=== PATIENT | female | born 1940 | race Caucasian/White ===

== ENCOUNTER → 2018-10-25 10:07 | Outpatient (CLI) | payer MEDICARE, OTHER, SELFPAY ==
--- NOTE | 2018-10-25 | DI.MG.S_ITS ---
BILATERAL DIGITAL SCREENING MAMMOGRAM 3D/2D WITH CAD: 10/25/2018 CLINICAL: Routine screening. Family history of breast cancer. Comparison is made to exams dated: 07/18/2016 mammogram, 05/19/2015 mammogram, and 05/01/2014 mammogram - [facility]. The tissue of both breasts is heterogeneously dense. This may lower the sensitivity of mammography. Current study was also evaluated with a Computer Aided Detection (CAD) system. No significant masses, calcifications, or other findings are seen in either breast. There has been no significant interval change. IMPRESSION: NEGATIVE There is no mammographic evidence of malignancy. A 1 year screening mammogram is recommended. This exam was interpreted at Station ID: [id number]. NOTE: For mammograms, a report in lay terms will be sent to the patient. Approximately 15% of breast malignancies will not be visualized mammographically. In the management of a palpable breast mass, a negative mammogram must not discourage biopsy of a clinically suspicious lesion. Electronically Signed By: Minerva gutierrez/sukhi:10/26/2018 12:27:35 letter sent: Normal Exam ACR BI-RADS Category 1: Negative 3341F
== END ==
PROVIDERS: PCP Family Medicine; Visit Provider Family Medicine
DX: Z12.31 Encounter for screening mammogram for malignant neoplasm of breast (principal); Z80.3 Family history of malignant neoplasm of breast
CPT/HCPCS: 77063; 77067

== ENCOUNTER → 2020-02-06 10:21 | Outpatient (CLI) | payer MEDICARE, OTHER, SELFPAY ==
--- NOTE | 2020-02-06 | DI.MG.S_ITS ---
BILATERAL DIGITAL SCREENING MAMMOGRAM 3D/2D WITH CAD: 02/06/2020 CLINICAL: Routine screening. Family history of breast cancer. Comparison is made to exams dated: 10/25/2018 mammogram - [facility], 07/18/2016 mammogram, 05/19/2015 mammogram, and 05/01/2014 mammogram - [facility]. The tissue of both breasts is heterogeneously dense. This may lower the sensitivity of mammography. Current study was also evaluated with a Computer Aided Detection (CAD) system. There are benign calcifications in both breasts. No significant masses, calcifications, or other findings are seen in either breast. There has been no significant interval change. IMPRESSION: There is no mammographic evidence of malignancy. A 1 year screening mammogram is recommended. This exam was interpreted at Station ID: [id number]. NOTE: For mammograms, a report in lay terms will be sent to the patient. Approximately 15% of breast malignancies will not be visualized mammographically. In the management of a palpable breast mass, a negative mammogram must not discourage biopsy of a clinically suspicious lesion. Electronically Signed By: Robert castellano/sukhi:02/06/2020 15:46:05 letter sent: Normal Exam ACR BI-RADS Category 2: Benign Finding(s) 3342F
== END ==
PROVIDERS: PCP Family Medicine; Referring Provider Family Medicine; Visit Provider Family Medicine
DX: Z12.31 Encounter for screening mammogram for malignant neoplasm of breast (principal); Z80.3 Family history of malignant neoplasm of breast
CPT/HCPCS: 77063; 77067

== ENCOUNTER → 2021-09-13 11:07 | Outpatient (CLI) | payer MEDICARE, OTHER, SELFPAY ==
--- NOTE | 2021-09-13 | DI.MG.S_ITS ---
BILATERAL DIGITAL SCREENING MAMMOGRAM 3D/2D WITH CAD: 09/13/2021 CLINICAL: Routine screening. Family history of breast cancer. Comparison is made to exams dated: 02/06/2020 mammogram, 10/25/2018 mammogram - [facility], and 07/18/2016 mammogram - [facility]. The tissue of both breasts is heterogeneously dense. This may lower the sensitivity of mammography. Current study was also evaluated with a Computer Aided Detection (CAD) system. There are benign calcifications in both breasts. No significant masses, calcifications, or other findings are seen in either breast. There has been no significant interval change. IMPRESSION: BENIGN There is no mammographic evidence of malignancy. A 1 year screening mammogram is recommended. This exam was interpreted at Station ID: [id number]. NOTE: For mammograms, a report in lay terms will be sent to the patient. Approximately 15% of breast malignancies will not be visualized mammographically. In the management of a palpable breast mass, a negative mammogram must not discourage biopsy of a clinically suspicious lesion. Electronically Signed By: Elías vigil/sukhi:09/13/2021 13:02:23 letter sent: Normal Exam ACR BI-RADS Category 2: Benign Finding(s) 3342F
== END ==
PROVIDERS: PCP Student in an Organized Health Care Education/Training Program; Referring Provider Student in an Organized Health Care Education/Training Program; Visit Provider Student in an Organized Health Care Education/Training Program
DX: Z12.31 Encounter for screening mammogram for malignant neoplasm of breast (principal); Z80.3 Family history of malignant neoplasm of breast
CPT/HCPCS: 77063; 77067

== ENCOUNTER → 2022-10-21 11:03 | Outpatient (CLI) | payer MEDICARE, OTHER, SELFPAY ==
--- NOTE | 2022-10-21 | DI.MG.S_ITS ---
BILATERAL DIGITAL SCREENING MAMMOGRAM 3D/2D WITH CAD: 10/21/2022 CLINICAL: Routine screening. Family history of breast cancer. Comparison is made to exams dated: 09/13/2021 mammogram, 02/06/2020 mammogram, and 10/25/2018 mammogram - [facility]. Both breasts are heterogeneously dense, which may obscure small masses (category c / 51-75% glandular tissue). Current study was also evaluated with a Computer Aided Detection (CAD) system. There are benign calcifications in both breasts. There also are benign vascular calcifications in both breasts. No significant masses, calcifications, or other findings are seen in either breast. There has been no significant interval change. IMPRESSION: BENIGN There is no mammographic evidence of malignancy. A 1 year screening mammogram is recommended. Based on the Tyrer Cuzick model (a risk assessment model) the patient's lifetime risk is 3.8% and her 10 year risk is 0.0%. According to the ACR, ACS, and NCCN guidelines, an annual breast MRI exam along with mammogram is recommended if the patient's lifetime risk is 20% or greater. This exam was interpreted at Station ID: [id number]. NOTE: For mammograms, a report in lay terms will be sent to the patient. Approximately 15% of breast malignancies will not be visualized mammographically. In the management of a palpable breast mass, a negative mammogram must not discourage biopsy of a clinically suspicious lesion. Electronically Signed By: Lali zheng/sukhi:10/21/2022 12:01:03 letter sent: Normal Exam ACR BI-RADS Category 2: Benign Finding(s) 3342F
== END ==
PROVIDERS: PCP Student in an Organized Health Care Education/Training Program; Referring Provider Student in an Organized Health Care Education/Training Program; Visit Provider Student in an Organized Health Care Education/Training Program
DX: Z12.31 Encounter for screening mammogram for malignant neoplasm of breast (principal); Z80.3 Family history of malignant neoplasm of breast
CPT/HCPCS: 77063; 77067

== ENCOUNTER → 2023-09-08 10:24 | Outpatient (CLI) | payer MEDICARE, OTHER, SELFPAY ==
--- NOTE | 2023-09-08 10:26 | DI.CT.S_ITS ---
PROCEDURE: CT UE RT WO CON INDICATIONS: PRIMARY OSTEOARTHRITIS,RT SHOULDER TECHNIQUE: Noncontrast 1-1.5 mm thick sections acquired from the acromioclavicular joint to the inferior scapula, with coronal and sagittal reformatting. COMPARISON: [facility], CR, XR SHOULDER 2+ VIEWS RIGHT, 08/17/2023, 11:34. [facility], CR, XR SHOULDER 2+ VIEWS LEFT, 08/17/2023, 11:51. FINDINGS: Image quality: Excellent. Bones: No acute osseous fracture or dislocation. Full-thickness joint space narrowing is seen at the glenohumeral joint with subchondral sclerosis, subchondral cystic changes, marginal osteophyte formation, and mild remodeling of the articular surfaces. No significant glenoid retroversion or anteversion. Moderate to severe degenerative changes are seen at the acromioclavicular joint. The included ribs are intact. Degenerative changes are seen in the included spine. Soft tissues: Moderate glenohumeral effusion with subacromial/subdeltoid bursal fluid and a moderate subcoracoid bursal effusion. There is no significant rotator cuff muscle atrophy. The tendons, ligaments, articular cartilages, and labrum are not well evaluated on standard CT. The musculature surrounding the shoulder is otherwise normal in bulk. Tree-in-bud nodularity is seen within the included right upper lobe. IMPRESSION: 1. Severe glenohumeral osteoarthrosis as described in the body of the report. No significant glenoid retroversion or anteversion. 2. Moderate glenohumeral effusion. Subacromial/subdeltoid and subcoracoid bursal effusions are also present. 3. 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 4. Tree-in-bud nodularity in the right lung is most likely infectious or inflammatory in etiology. Approved by: Elías Barger M.D. on 09/08/2023 at 16:29
== END ==
LOC: CT 10:25
PROVIDERS: PCP Student in an Organized Health Care Education/Training Program; Referring Provider Orthopaedic Surgery; Visit Provider Orthopaedic Surgery
DX: M19.011 Primary osteoarthritis, right shoulder (principal); M25.411 Effusion, right shoulder
CPT/HCPCS: 73200

== ENCOUNTER 2023-09-28 06:23 | Day surgery (SDC) | payer MEDICARE, OTHER, SELFPAY ==
[2023-09-19 09:44] VITALS: BMI 28.1
--- NOTE | 2023-09-28 06:00 | DI.RAD.S_ITS ---
PROCEDURE: XR SHOULDER RT MIN 2V INDICATIONS: TSA TECHNIQUE: 1 view of the shoulder was acquired. COMPARISON: None. FINDINGS: Bones: Patient is status post right shoulder arthroplasty with hardware components in expected positions on the single view. No acute osseous abnormality. Lumbar spinal hardware is partially imaged. Soft tissues: No suspicious soft tissue calcifications. Postoperative changes are seen in the soft tissues overlying the shoulder. IMPRESSION: Status post right shoulder arthroplasty with expected postoperative findings. Dictated by: Elías Barger M.D. on 09/28/2023 at 20:39 Approved by: Elías Bargre M.D. on 09/28/2023 at 20:47
[2023-09-28 07:09] VITALS: BP 139/63; PULSE 74; RESP 16; TEMP 36.3; O2SAT 98; BMI 28.1
[2023-09-28] MEDS: ACETAMINOPHEN 325 MG TABLET 975 MG PO (07:17)
--- NOTE | 2023-09-28 07:23 | SUR.OPER ---
Beach chair with [place] shoulder positioner. Lower body on padded OR bed. Head in foam padded head cradle, secured with straps. Non-operative arm secured across patients chest and padded. Pillow under knees. Safety belt at thigh. Cloth tape over blanket over lower legs.
--- NOTE | 2023-09-28 07:35 | PM.HP.1 ---
History of Present Illness History of Present Illness Date Patient Seen: 09/28/23 Time Patient Seen: 07:36 Chief complaint: INPT Narrative: This is a pleasant 82-year-old female here today seen in the preoperative area for a right shoulder replacement. She has had her left replaced 8 years ago and is doing well from that. She has not had any changes in her symptoms since I last saw her over a month ago. Denies any recent nausea, vomiting, diarrhea, fevers, chills or any other constitutional symptoms. No other complaints at this time. [facility] Medical History (Updated 09/19/23 @ 10:01 by Kylie Villanueva RN) History of COVID-19 (07/27/23) Left wrist fracture (1990) Arthritis Hypothyroidism HTN (hypertension) Sinus drainage Asthma Surgical History (Updated 09/19/23 @ 09:51 by Kylie Villanueva RN) History of lumbar spinal fusion (08/08/17) History of lumbar spinal fusion (1967) History of total replacement of left shoulder joint History of total left knee replacement History of total right knee replacement Hx of tonsillectomy History of partial hysterectomy (1981) Social History household members: spouse Smoking Status: Former smoker alcohol intake: former Meds Home Medications and Allergies Home Medications Medication Instructions Recorded Confirmed Type albuterol sulfate 90 mcg/actuation 2 puff INH Q4HP PRN Shortness Of 07/20/17 09/28/23 History aerosol inhaler (Ventolin HFA) Breath ##0 hydrochlorothiazide 25 mg tablet 25 mg PO BID ##0 07/20/17 09/28/23 History beclomethasone dipropionate 80 1 inh inhalation BID PRN Shortness 09/19/23 09/28/23 History mcg/actuation HFA breath activated Of Breath aerosol (Qvar RediHaler) escitalopram oxalate 10 mg tablet 10 mg PO QNOON 09/19/23 09/28/23 History levothyroxine 100 mcg capsule 100 mcg PO DAILY 09/19/23 09/28/23 History Allergies Allergy/AdvReac Type Severity Reaction Status Date / Time hydromorphone [From DILAUDID] Allergy Severe ASTHMA Verified 09/28/23 06:55 ATTACK Penicillins [PENICILLINS] Allergy Severe RASH, Verified 09/28/23 06:55 SWELLING Sulfa (Sulfonamide Allergy Severe RASH Verified 01/25/24 06:55 Antibiotics) [SULFA (SULFONAMIDE ANTIBIOTICS)] meloxicam [MELOXICAM] AdvReac Severe HYPERTENSIO Verified 09/28/23 06:55 N meperidine [From DEMEROL] AdvReac Severe NAUSEA, Verified 09/28/23 06:55 VOMITING pregabalin AdvReac Intermediate Dizziness Verified 09/28/23 06:55 Review of Systems Review of Systems ROS: Yes All systems reviewed with the patient and are negative except as otherwise documented Exam Vital Signs (past 8 hours): - 09/28/23 07:09 Temperature 97.3 F L Pulse Rate 74 Respiratory Rate 16 Blood Pressure 139/63 Pulse Oximetry 98 Oxygen Delivery Method Room Air Oxygen Delivery Method Room Air Narrative Exam Narrative: HEENT: Head atraumatic eyes anicteric moist mucous membranes Cardiovascular: Palpable peripheral pulses extremities are warm and well perfused Respiratory: Breathing comfortably on room air Psychiatric: Appropriate mood and affect Neuro: No acute deficits Musculoskeletal: Focused exam of the right upper extremity demonstrates forward elevation 145, external rotation 30, sensation intact to light touch in median, radial, ulnar, axillary nerve distributions. 2+ radial pulse brisk capillary refill less than 2 seconds. Able to give thumbs up, A-Okay, cross fingers. Objective Labs 09/28/23 07:25 Assessment & Plan Assessment & Plan narrative: Assessment: 82-year-old female with right glenohumeral arthritis Plan: Plan for right shoulder anatomic replacement. Risks and benefits of surgery were discussed again including the risk of infection, damage to internal structures, bleeding, nerve injury, instability, need for revision surgery, blood clots, anesthesia and . No guarantees were made regarding outcomes. Patient expressed understanding and accepted these risks and wished to go forward with surgery and consent was signed.
[2023-09-28 07:49] LABS: Blood Urea Nitrogen 14 mg/dL (7-17); Calcium 9.4 mg/dL (8.4-10.2); Carbon Dioxide 29 mmol/L (22-32); Chloride 96 mmol/L (98-107); Estimated Glomerular Filt Rate > 60 mL/min (>60); Glucose 97 mg/dL (80-110); HEMOLYSIS 20 (0-50); Potassium 3.7 mmol/L (3.4-5.1); Sodium 132 mmol/L (137-145)
--- NOTE | 2023-09-28 07:57 | SUR.PREOP ---
Block start time [0745] . Monitoring initiated and maintained throughout procedure. Oxygen and medications given per anesthesiologist instructions. Patient remained stable throughout procedure, no adverse reactions noted. Block end time [0752].
[2023-09-28] MEDS: TRANEXAMIC ACID 1,000 MG VIAL 1000 MG INJ (08:00)
[2023-09-28] MEDS: CEFAZOLIN 2 GM/100 ML PREMIX 100 ML IV (08:00)
[2023-09-28] MEDS: BUPIVACAINE 0.25% (PF) 30 ML, EPINEPHrine 0.15 MG INJ (08:36)
--- NOTE | 2023-09-28 09:49 | PM.OP.1 ---
Operative Date/Time/Diagnoses Date of procedure: 09/28/23 Time of procedure: 09:49 Pre-op diagnosis: Right shoulder glenohumeral arthritis Post-op diagnosis: same Procedure & Clinicians Procedure: Right anatomic shoulder arthroplasty Same procedure as scheduled: Yes Indications: Indications: This is a 82-year-old female who has [primary osteoarthritis of the glenohumeral joint]. Symptoms have been present for years, insidious onset. Patient has failed conservative therapy including injections, physical therapy, anti-inflammatories and activity modification. After extensive discussion in clinic, they wished to go forward with surgery. Risks and benefits were described including the risk of infection, bleeding, damage to internal structures including nerves. We also discussed the risk of failure of surgery and the need for revision surgery as well as the risk of anesthesia. The patient expressed understanding with these risks and wished to go forward with surgery. Surgeon: [place] Park Triple Air Valve Tester: Oniel Gutierrez Click Yes if Unassisted: No Anesthesia Type: General Operative Notes Findings: Findings: Osteoarthritis of the glenoid and humeral head as noted on preoperative imaging and under direct visualization Closure Type: primary Specimen(s): none sent Prosthetic devices, grafts, tissues, transplants, or devices: [employer] CortiLoc Pegged Glenoid UHMWPE small 35 Simpliciti Nucleus Size 1 Simpliciti CoCr head size 43 x 16 Estimated Blood Loss (mL): 50 Procedure in detail: Operative note: Patient was seen in the preoperative holding unit. The correct right shoulder was identified and marked with my initials. Again we discussed the risks and benefits of surgery and they wished to go forward with surgery. The patient was brought back to the operating room and placed supine on the operating table. She underwent smooth endotracheal intubation. All prominences were padded and they were placed into the beach chair position. Intravenous antibiotics were given. The right shoulder was then prepped with the standard sterile preparation and draping. A time-out was then performed in my initials were again identified on the correct shoulder. 1 g of IV tranexamic acid was given. A standard deltopectoral incision was made. Skin flaps were made. The cephalic vein was identified and retracted laterally. This was protected throughout the remainder of the case. Sharp dissection was made along the deltoid, subacromial and subcoracoid space to release adhesions. The conjoined tendon was identified and the axillary nerve was palpated and continuous using the tug test. It was protected throughout the remainder of the case. A brown retractor was placed underneath the deltoid muscle and a darach retractor underneath the conjoint tendon. The anterior circumflex artery and associated veins on the lower border of the subscapularis were identified and tied off using 0-Vicryl. The biceps tendon was identified in the bicipital groove. This was released from its sheath, and taken from its origin on the glenoid and tied into the pectoralis tendon for a solid tenodesis. We then began a subscapularis peel. The subscapularis was tagged with an Ethibond suture. A 360 degree circumferential release of the subscapularis was performed with protection of the axillary nerve. The coracohumeral ligament was released at the base of the coracoid. The coracoacromial ligament was left intact. The shoulder was then dislocated. Osteophytes were removed using combination of rongeur and osteotome. The rotator cuff was noted to be intact. Using an oscillating saw a conservative humeral head cut was made using the patient's inupiat version. The head was measured and a guide for size 1 nucleuswas used to drill a central hole followed by impaction. Attention was then turned to the glenoid. After retracting the humeral head posteriorly, release of the capsule and labrum was performed. Central guidewire was placed. The glenoid was then reamed followed by a central drill over the guidewire. Guidewire was removed and using a guide, peripheral holes were drilled. At this point dilute Betadine wash was performed for 2 minutes. Medium viscosity cement was mixed and the drill holes were completely dried. An all polyethylene pegged glenoid was then selected, and cemented into the glenoid. Turning back to the humerus, the humeral head was delivered and 3 seperate [place]oupes were passed through drill holes through the lesser tuberosity into the bicipital groove. The nucleus was then impacted into the humerus and a size 43 x 16 stemless humeral head was placed. The shoulder was then reduced and again brought through range of motion and was felt to be stable. The interval was then closed using #2 ethibond. The subscapularis was then repaired using a modified racking hitch with niece loupes. The deltopectoral interval was then closed with #2 Ethibond. The skin was closed with 2-0 Vicryl and Monocryl followed by Aquacel dressing. Patient was awoken from anesthesia and brought back to the postoperative recovery unit without issue. They were placed into a sling. Assisting participation: This operation could not have been safely performed (without compromising the technical results or length of the procedure) without the assistance of a skilled assistant infant teacher. The assistant infant teacher was medically necessary for proper positioning, retraction and manipulation of instruments, proper exposure, graft prep, and manipulation of tissue. Complications: none Post-operative Condition: stable Disposition: PACU Plan for aftercare: Postoperative instructions: Sling to remain on for 6 weeks. No external rotation past neutral for 6 weeks. Okay for sling to come off for shower and gentle pendulum exercises. Okay to shower over the Aquacel dressing. If any water gets underneath the dressing, remove the dressing. First postoperative visit in 2 weeks.
[2023-09-28 09:51] VITALS: BP 180/87; PULSE 91; RESP 16; TEMP 36.3; O2SAT 94
[2023-09-28 09:57] VITALS: BP 176/82; PULSE 86; RESP 16; O2SAT 94
[2023-09-28 10:01] VITALS: BP 141/76; PULSE 83; RESP 12; O2SAT 93
[2023-09-28 10:08] VITALS: BP 146/72; PULSE 78; RESP 16; O2SAT 94
[2023-09-28] MEDS: OXYCODONE IR 5 MG TABLET PO (10:13)
[2023-09-28] MEDS: ONDANSETRON 4 MG ODT SL (10:37)
== END 2023-09-28 11:06 | disposition home or self-care (01) ==
LOC: AC 10:17 → OR 11:25
PROVIDERS: Anesthesiology; PCP Student in an Organized Health Care Education/Training Program; Referring Provider Orthopaedic Surgery; Visit Provider Orthopaedic Surgery
PROC: 0RQJ0ZZ Repair Right Shoulder Joint, Open Approach (ICD-10-PCS; CPT 23472; principal; 2023-09-28 07:45)
DX: M19.011 Primary osteoarthritis, right shoulder (principal); G89.18 Other acute postprocedural pain; M75.01 Adhesive capsulitis of right shoulder; M25.711 Osteophyte, right shoulder
CPT/HCPCS: 23472; 64450; 73030; 80048; C1776; C1713; J0171; J0690; J1100; J2405; J2704; J3010

== ENCOUNTER → 2023-12-19 10:32 | Outpatient (CLI) | payer MEDICARE, OTHER, SELFPAY ==
--- NOTE | 2023-12-19 10:34 | DI.MG.S_ITS ---
BILATERAL DIGITAL SCREENING MAMMOGRAM 3D/2D WITH CAD: 12/19/2023 CLINICAL: Routine screening. Family history of breast cancer. Comparison is made to exams dated: 10/21/2022 mammogram, 09/13/2021 mammogram, and 02/06/2020 mammogram - [facility]. Both breasts are heterogeneously dense, which may obscure small masses (category c / 51-75% glandular tissue). Current study was also evaluated with a Computer Aided Detection (CAD) system. There are benign calcifications in both breasts. There also are benign vascular calcifications in both breasts. No significant masses, calcifications, or other findings are seen in either breast. There has been no significant interval change. IMPRESSION: BENIGN There is no mammographic evidence of malignancy. A 1 year screening mammogram is recommended. Based on the Tyrer Cuzick model (a risk assessment model) the patient's lifetime risk is 1.4% and her 10 year risk is 0.0%. According to the ACR, ACS, and NCCN guidelines, an annual breast MRI exam along with mammogram is recommended if the patient's lifetime risk is 20% or greater. This exam was interpreted at Station ID: [id number]. NOTE: For mammograms, a report in lay terms will be sent to the patient. Approximately 15% of breast malignancies will not be visualized mammographically. In the management of a palpable breast mass, a negative mammogram must not discourage biopsy of a clinically suspicious lesion. Electronically Signed By: Minerva gutierrez/sukhi:12/19/2023 16:20:10 letter sent: Normal Exam ACR BI-RADS Category 2: Benign Finding(s) 3342F
== END ==
LOC: MAMMO 10:33
PROVIDERS: PCP Student in an Organized Health Care Education/Training Program; Referring Provider Student in an Organized Health Care Education/Training Program; Visit Provider Student in an Organized Health Care Education/Training Program
DX: Z12.31 Encounter for screening mammogram for malignant neoplasm of breast (principal); Z80.3 Family history of malignant neoplasm of breast; R92.333 Mammographic heterogeneous density, bilateral breasts
CPT/HCPCS: 77063; 77067

== ENCOUNTER → 2024-04-15 10:22 | Outpatient (CLI) | payer MEDICARE, OTHER, SELFPAY ==
[2024-04-15 11:02] LABS: Add Manual Diff / Slide Review NO; Basophils Absolute Auto 0 /uL (0-100); Basophils Percent Auto 0.4 % (0-2); Eosinophils Absolute Auto 100 /uL (0-450); Eosinophils Percent Auto 1.8 % (2-4); Hematocrit 38.2 % (36-46); Lymphocytes Absolute Auto 2100 /uL (1100-4500); Lymphocytes Percent Auto 26.5 % (25-40); Mean Corpuscular Hemoglobin 29.4 PG (26-34); Mean Corpuscular Volume 86.4 fL (80-100); Monocytes Absolute Auto 500 /uL (0-900); Monocytes Percent Auto 6.3 % (3-14); Neutrophils Absolute Auto 5100 /uL (1500-7000); Platelet Count 256 X10^3/uL (150-400); Red Blood Cell Count 4.42 X10^6/uL (4.0-5.2); Red Cell Distribution Width 13.4 % (11.6-14.8); White Blood Cell Count 7.9 X10^3/uL (4.5-11.0)
[2024-04-15 11:28] LABS: Alanine Aminotransferase 17 IU/L (<35); Albumin 4.3 g/dL (3.5-5.0); Albumin Globulin Ratio 1.5 (1.0-2.8); Alkaline Phosphatase 98 U/L (38-126); Aspartate Aminotransferase 25 IU/L (14-36); BUN Creatinine Ratio 21.1 (6-22); Bilirubin Total 0.8 mg/dL (0.2-1.3); Blood Urea Nitrogen 15 mg/dL (7-17); Calcium 9.9 mg/dL (8.4-10.2); Carbon Dioxide 28 mmol/L (22-32); Chloride 97 mmol/L (98-107); Estimated Glomerular Filt Rate > 60 mL/min (>60); Globulin 2.9 g/dL (1.7-4.1); Glucose 84 mg/dL (80-110); HEMOLYSIS < 15 (0-50); Potassium 3.5 mmol/L (3.4-5.1); Sodium 133 mmol/L (137-145); Total Protein 7.2 g/dL (6.3-8.2)
[2024-04-15 11:43] LABS: Vitamin D 25 Hydroxy (D3) < 12.8 ng/mL (30.0-100.0)
[2024-04-15 11:57] LABS: TSH w/ Reflex to FT4 < 0.02 uIU/mL (0.47-4.68)
[2024-04-15 12:22] LABS: Free T4, Direct Thyroxine 1.89 ng/dL (0.78-2.19)
== END ==
PROVIDERS: PCP Family Medicine; Referring Provider Family Medicine; Visit Provider Family Medicine
DX: E03.9 Hypothyroidism, unspecified (principal); M81.0 Age-related osteoporosis without current pathological fracture; Z78.0 Asymptomatic menopausal state; I10 Essential (primary) hypertension; E87.1 Hypo-osmolality and hyponatremia; D64.9 Anemia, unspecified
CPT/HCPCS: 36415; 80053; 82306; 84439; 84443; 85025

== ENCOUNTER → 2024-06-03 10:02 | Outpatient (CLI) | payer MEDICARE, OTHER, SELFPAY ==
[2024-06-03 13:06] LABS: TSH w/ Reflex to FT4 0.23 uIU/mL (0.47-4.68)
[2024-06-03 13:33] LABS: Free T4, Direct Thyroxine 1.68 ng/dL (0.78-2.19)
[2024-06-03 17:46] LABS: Vitamin D 25 Hydroxy (D3) 43.7 ng/mL (30.0-100.0)
== END ==
PROVIDERS: PCP Family Medicine; Referring Provider Family Medicine; Visit Provider Family Medicine
DX: E03.9 Hypothyroidism, unspecified (principal); M81.0 Age-related osteoporosis without current pathological fracture; Z78.0 Asymptomatic menopausal state
CPT/HCPCS: 36415; 82306; 84439; 84443

== ENCOUNTER → 2024-10-28 10:06 | Outpatient (CLI) | payer MEDICARE, OTHER, SELFPAY ==
[2024-10-28 11:47] LABS: Thyroid Stimulating Hormone 0.384 uIU/mL (0.47-4.68)
== END ==
PROVIDERS: PCP Family Medicine; Referring Provider Family Medicine; Visit Provider Family Medicine
DX: E03.9 Hypothyroidism, unspecified (principal)
CPT/HCPCS: 36415; 84443

== ENCOUNTER → 2024-11-08 10:57 | Outpatient (CLI) | payer MEDICARE, OTHER, SELFPAY ==
--- NOTE | 2024-11-08 10:59 | DI.RAD.S_ITS ---
PROCEDURE: FL BARIUM SWALLOW INDICATIONS: food getting stuck;difficulty swallowing COMPARISON: None. FINDINGS: Function: There is normal esophageal peristalsis. Mild gastroesophageal reflux to the distal 3rd of the esophagus. There is normal transit of a calibrated barium tablet through the esophagus into the stomach. Morphology: Air-contrast images demonstrate normal mucosal morphology. Single contrast views show no esophageal strictures, extrinsic mass effects, or diverticula. Limited images of the stomach demonstrate normal appearance. IMPRESSION: Mild reflux. Dictated by: Marlyn Bartlett M.D. on 11/08/2024 at 15:51 Approved by: Marlyn Bartlett M.D. on 11/08/2024 at 15:52
== END ==
PROVIDERS: PCP Family Medicine; Referring Provider Family Medicine; Visit Provider Family Medicine
DX: K21.9 Gastro-esophageal reflux disease without esophagitis (principal); R13.10 Dysphagia, unspecified
CPT/HCPCS: 74220

== ENCOUNTER → 2025-01-03 11:48 | Outpatient (CLI) | payer MEDICARE, OTHER, SELFPAY ==
--- NOTE | 2025-01-03 11:49 | DI.MG.S_ITS ---
MM screening mammo BI: 01/03/2025. BI-RADS: 0 CLINICAL: 84-year old female for bilateral screening mammogram. Tyrer-Cuzick lifetime risk of 1.3%. Current reported family history of breast cancer: mother. PRIOR EXAMS 12/19/2023, 10/21/2022, 09/13/2021, 02/06/2020, 10/25/2018. MAMMOGRAPHY TECHNIQUE: 2D and 3D (tomosynthesis) digital mammographic views obtained, with additional images as needed for full coverage. Current study was also evaluated with a Computer Aided Detection (CAD) system. DENSITY C. The breasts are heterogeneously dense, which may obscure small masses. MAMMOGRAPHY FINDINGS Right: CC only, Outer, Middle depth: Asymmetry needing additional imaging evaluation. Right: Benign-appearing calcification noted on the right. Typically-benign vascular calcifications also noted. Left: Benign-appearing calcification noted on the left. Typically-benign vascular calcifications also noted. No significant change from comparison. IMPRESSION: Right (Asymmetry): CC only, Outer, Middle depth * Incomplete - asymmetry needing additional imaging evaluation. Left * No evidence of malignancy with benign findings. RECOMMENDATIONS Right: CC only, Outer, Middle depth * Further evaluation with diagnostic mammography and diagnostic ultrasound. Ultrasound to be performed only if needed. OVERALL ASSESSMENT CATEGORY BI-RADS-0: Incomplete - Need Additional Imaging Evaluation. ELECTRONICALLY SIGNED: Minerva Whiteside M.D. on 01/03/2025 at 05:02:54 PM PT Interpreting Station ID: [id number]
== END ==
PROVIDERS: PCP Family Medicine; Referring Provider Family Medicine; Visit Provider Family Medicine
DX: Z12.31 Encounter for screening mammogram for malignant neoplasm of breast (principal); Z80.3 Family history of malignant neoplasm of breast; R92.333 Mammographic heterogeneous density, bilateral breasts
CPT/HCPCS: 77063; 77067

== ENCOUNTER → 2025-02-05 12:13 | Outpatient (CLI) | payer MEDICARE, OTHER, SELFPAY ==
--- NOTE | 2025-02-05 12:15 | DI.MG.S_ITS ---
MM diagnostic mammo unilat RT: 02/05/2025. BI-RADS: 1 CLINICAL: 84-year old female for right diagnostic mammogram that is a recall from screening on 01/03/2025. Tyrer-Cuzick lifetime risk of 1.6%. Current reported family history of breast cancer: mother. PRIOR EXAMS Mammogram(s): 01/03/2025. Five Other Exams on 12/19/2023, 10/21/2022, 09/13/2021, 02/06/2020, 10/25/2018. MAMMOGRAPHY TECHNIQUE: 2D and 3D (tomosynthesis) digital mammographic views obtained, with additional images as needed for full coverage. Current study was also evaluated with a Computer Aided Detection (CAD) system. DENSITY Right: C. The breasts are heterogeneously dense, which may obscure small masses. MAMMOGRAPHY FINDINGS Right: CC only, Outer: No suspicious mass, asymmetry, microcalcification, or other abnormality seen. The previously questioned finding resolves on spot compression views and is not seen on the additional view. IMPRESSION: Right * Screening mammogram finding is likely overlapping normal fibroglandular tissue. * No evidence of malignancy. RECOMMENDATIONS Bilateral * Annual screening mammography. COMMENTS: Findings and recommendations were conveyed to the patient during today's evaluation. OVERALL ASSESSMENT CATEGORY BI-RADS-1: Negative. The [employer] recommends annual screening mammography beginning at age 40 for women with average risk of breast cancer. ELECTRONICALLY SIGNED: Minerva Whiteside M.D. on 02/06/2025 at 12:45:47 AM PT Interpreting Station ID: [id number]
== END ==
LOC: MAMMO 12:14
PROVIDERS: PCP Family Medicine; Referring Provider Family Medicine; Visit Provider Family Medicine
DX: R92.8 Other abnormal and inconclusive findings on diagnostic imaging of breast (principal); R92.331 Mammographic heterogeneous density, right breast; Z80.3 Family history of malignant neoplasm of breast
CPT/HCPCS: 77065; G0279

== ENCOUNTER → 2025-04-02 10:53 | Outpatient (CLI) | payer MEDICARE, OTHER, SELFPAY ==
--- NOTE | 2025-04-02 10:54 | DI.MRI.S_ITS ---
PROCEDURE: MR SHOULDER RT W CON INDICATIONS: SP TSA WEAKNESS TECHNIQUE: After the administration of 12 mL of dilute intra-articular Gadolinium contrast, oblique coronal T1 and T2 spin echo with fat saturation, oblique sagittal T1 spin echo with and without fat saturation, oblique sagittal T2 fast spin echo with fat saturation, axial T1 spin echo with fat saturation through the shoulder. COMPARISON: [facility] [place], CR, XR SHOULDER 2+ VIEWS RIGHT, 01/21/2025, 11:54. FINDINGS: Image quality: Shoulder arthroplasty, creating artifacts and limits evaluation. Rotator cuff: The supraspinatus tendon is not visualized at the footprint, concerning for full-thickness, full width tear. The infraspinatus tendon is grossly unremarkable. The teres minor is unremarkable. Likely full-thickness tear of the superior fiber of the subscapularis (11:9). Limited evaluation given metallic artifact. No muscle edema. 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 Bones and bursae: Mild degenerative changes acromioclavicular joint. Type 2 acromion. No os acromiale. Status post the total shoulder arthroplasty, creating artifacts and limits evaluation. Moderate sized subchondral cystic changes with marrow edema at the greater tuberosity, favor reactive. No acute fracture. Capsule and soft tissues: The labrum is surgically absent. The extra-articular biceps tendon is not visualized, likely fully torn. Nondiagnostic evaluation of the intra-articular biceps tendon. No intra-articular body. IMPRESSION: 1. Total shoulder arthroplasty, creating artifacts and limits evaluation. 2. Findings concerning for full-thickness, full width tear of the supraspinatus, and full-thickness tear of the superior fiber of the subscapularis. 3. 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 4. Likely full-thickness tear of the extra-articular biceps tendon. Nondiagnostic evaluation intra-articular biceps tendon. Dictated by: Yessenia Sainz M.D. on 04/02/2025 at 13:41 Approved by: Yessenia Sainz M.D. on 04/02/2025 at 13:51
--- NOTE | 2025-04-02 10:54 | DI.RAD.S_ITS ---
PROCEDURE: FL ARTHROGRAM SHOULDER RT INDICATIONS: SP TSA WEAKNESS COMPARISON: [facility], MR, MR SHOULDER RT W CON, 04/02/2025, 11:52. TECHNIQUE: The indications, alternatives, benefits, risks, and complications of the procedure were explained to the patient. Written informed consent was obtained and placed in the chart. The shoulder was examined fluoroscopically and a site for needle placement chosen for entry into the glenohumeral joint from an anterior approach. The skin was prepped and draped in a sterile fashion, and 1% lidocaine infiltrated from skin down to joint capsule. A spinal needle was inserted into the glenohumeral joint, and a small amount of iodinated contrast media injected to confirm intra-articular placement of the needle tip. This was followed by approximately 12 mL dilute solution of a gadolinium containing MR contrast agent. The needle was removed and a dressing was applied. The patient was given postprocedural instructions and sent to the MR suite for MR imaging. FINDINGS: A single fluoroscopic spot image demonstrates intra-articular location of injected iodinated contrast. IMPRESSION: Successful fluoroscopically guided administration of dilute Gadolinium solution into the shoulder joint for MR arthrogram. Dictated by: Scott Valdez M.D. on 04/02/2025 at 13:38 Approved by: Scott Valdez M.D. on 04/02/2025 at 13:38
[2025-04-02] MEDS: LIDOCAINE 1% 20 ML INJ (12:32)
[2025-04-02] MEDS: SODIUM CHLORIDE 0.9 % 20 ML VIAL IV (12:33)
== END ==
LOC: RAD 10:54
PROVIDERS: PCP Family Medicine; Referring Provider Orthopaedic Surgery; Visit Provider Orthopaedic Surgery
DX: M19.011 Primary osteoarthritis, right shoulder (principal); Z96.611 Presence of right artificial shoulder joint; M62.521 Muscle wasting and atrophy, not elsewhere classified, right upper arm
CPT/HCPCS: 23350; 73040; 73222; A9579; Q9967